=== PATIENT | male | born 1950 | race Caucasian/White ===

== ENCOUNTER → 2019-06-23 | Outpatient (CLI) | payer OTHER ==
--- NOTE | 2019-06-23 13:43 | CT ---
Procedure: CT LUNG SCREENING Exam Date: 06/23/2019. Ordering Provider: EDISON WRAY Clinical Indication: TOBACCO DEPENDENCE SYNDROME . Smoking cessation 3 weeks. 100 pack years. This patient meets eligibility criteria for low-dose CT lung cancer screening. Comparison: None. Technique: Using a multislice scanner, sequential helical axial imaging was obtained in the thorax, 2.5 mm thickness, 2.5 mm separation, from the level of the thoracic inlet through the lung bases without IV contrast. A low dose protocol was utilized for BMI less than 30: BMI: 28.7. CTDI: 1.76 mGy. 120. kVp. 45 mA. DLP 63.3 mGy-centimeters. 2D sagittal and coronal reconstructed images, 6.0 mm thickness, were obtained. This exam was performed according to our departmental dose optimization program which includes use of automated exposure control, adjustment of the mA and/or kV according to patient size and/or use of iterative reconstruction technique. Nodule measurements under 10 mm are given as mean value of 3 axes diameters. FINDINGS: Lungs and large airways: Bilateral perihilar peribronchial wall cuffing. Bilateral pleural-parenchymal scarring in the upper and lower lobes. No abnormal nodules or masses. No focal infiltrates. Bilateral small parenchymal blebs uniform and more predominant in the upper lung marie. Pleura and space: Bilateral focal thickening. Mediastinum and camryn: evaluation limited by low dose technique and lack of IV contrast. Unremarkable. Heart and great vessels: Atherosclerotic calcification aortic arch and descending thoracic aorta and coronary arteries. Chest wall, lower neck, axillae: Evaluation also limited by same factors as described above. Negative. Upper abdomen: Evaluation limited by low-dose technique. Atherosclerotic calcification and some of the arterial branches. Included segment with no free air or free fluid. Gallbladder partially visualized. Question of partial visualization upper pole cyst left kidney. Osseous structures: Evaluation limited by low dose MIP technique. Minimal spondylosis upper thoracic spine. IMPRESSION: Minimal emphysematous changes. No abnormal nodule or mass. No focal infiltrate. [facility] Best Practice Recommendations: please see below for Lung RADS category and FOLLOW-UP.* *Lung RADS category Category 1 - No nodule or definitely benign nodules (probability of malignancy less than 1%). Follow-up: Continue annual screening with Low Dose Chest CT in 12 months. Electronically signed by: Rafa Elizalde MD 06/23/2019 1:41 PM CDT
== END ==
LOC: CT 08:47
PROVIDERS: ATTEND Family Medicine
DX: F17.200 Nicotine dependence, unspecified, uncomplicated (principal)